=== PATIENT | female | born 1995 | race Caucasian/White ===

== ENCOUNTER 2019-01-19 17:18 | Emergency (ER) | payer OTHER ==
[~2019-01-19] VITALS: Ht 154.9 cm; Wt 63.5 kg
[2019-01-19 17:27] VITALS: BP_SYST 112
--- NOTE | 2019-01-19 17:35 | NUR ---
Patient triaged and placed in waiting room. VSS and patient appears in no acute distress at this time. Accompanied by mother, awaiting available bed, and MD notified of need for MSE.
--- NOTE | 2019-01-19 17:44 | NUR ---
Patient to ER bed 03 to gown for evaluation. Side rails up. Report given to Regulo RAINEY.
[2019-01-19] MEDS ORDERED: KETOROLAC TROMETHAMINE 60 MG/2 ML VIAL IM ONE (17:45)
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
[2019-01-19 18:49] VITALS: BP_SYST 112
--- NOTE | 2019-01-19 18:49 | NUR ---
Patient given written and verbal discharge instructions and verbalizes understanding. ER MD discussed with patient the results and treatment provided. Patient in stable condition. ID arm band removed. Rx of flexeril and motrin given. Patient educated on pain management and to follow up with PMD. Pain Scale 7/10. Opportunity for questions provided and answered. Medication side effect fact sheet provided.
== END 2019-01-19 18:49 | disposition home or self-care (01) ==
LOC: SED 17:18
DX: M79.10 Myalgia, unspecified site (principal); V43.92XA Unspecified car occupant injured in collision with other type car in traffic accident, initial encounter; Y93.89 Activity, other specified; Y92.410 Unspecified street and highway as the place of occurrence of the external cause; Y99.8 Other external cause status
CPT/HCPCS: 81025; 96372; 99283; J1885

== ENCOUNTER 2020-07-27 08:06 | Outpatient (CLI) | payer OTHER ==
[2020-07-27 08:51] LABS: BASOPHILS % (AUTO) 0.3 % (0.0-2.0); EOSINOPHILS # (AUTO) 0.2 K/uL (0.0-0.4); EOSINOPHILS % (AUTO) 2.6 % (0.0-4.0); HEMATOCRIT 38.2 % (36-48); LYMPHOCYTES # (AUTO) 2.5 K/uL (1.0-5.5); LYMPHOCYTES % (AUTO) 38.1 % (20.5-51.5); MEAN CORPUSCULAR HEMOGLOBIN 29 pg (27-31); MEAN CORPUSCULAR HGB CONC 34 % (32-36); MEAN CORPUSCULAR VOLUME 84 fL (79.0-98.0); MONOCYTES # (AUTO) 0.5 K/uL (0.0-1.0); MONOCYTES % (AUTO) 7.1 % (1.7-9.3); NEUTROPHILS # (AUTO) 3.4 K/uL (1.8-7.7); NEUTROPHILS % (AUTO) 51.9 % (40.0-70.0); PLATELET COUNT (AUTO) 229 K/uL (130-430); RED BLOOD CELL COUNT(AUTO) 4.56 MIL/uL (4.2-6.2); RED CELL DISTRIBUTION WIDTH 12.6 % (9.0-15.0); WHITE BLOOD COUNT (AUTO) 6.5 K/uL (4.8-10.8)
[2020-07-27 09:28] LABS: ERYTHROCYTE SEDIMENTATION RATE 16 MM/HR (0-20)
[2020-07-27 09:47] LABS: ALBUMIN 3.9 g/dL (3.4-4.8); CALCIUM 8.1 mg/dL (8.4-11.0); CREATININE 0.61 mg/dL (0.55-1.30); POTASSIUM 3.6 mmol/L (3.5-5.1); THYROID STIMULATING HORMONE 3.17 uIu/mL (0.36-3.74); TOTAL BILIRUBIN 0.3 mg/dL (0.0-1.0)
[2020-07-27 10:20] LABS: C-REACTIVE PROTEIN QUANT 0.4 mg/dL (0-0.5)
[2020-07-28 05:09] LABS: HEMOGLOBIN A1C 5.4 % (4.8-5.6)
== END 2020-07-27 20:59 | disposition home or self-care (01) ==
LOC: SUS 08:06
PROVIDERS: ATTEND Internal Medicine
DX: R10.9 Unspecified abdominal pain (principal)
CPT/HCPCS: 36415; 76700-TC; 80053; 80061; 82306; 82607; 83036; 84443-TC; 85025; 85651-TC; 86140; 87086

== ENCOUNTER 2021-03-08 10:06 | Outpatient (CLI) | payer OTHER ==
[2021-03-08 10:50] LABS: BASOPHILS % (AUTO) 0.3 % (0.0-2.0); EOSINOPHILS # (AUTO) 0.1 K/uL (0.0-0.4); HEMATOCRIT 37.4 % (36-48); HEMOGLOBIN 12.8 g/dL (12.0-16.0); LYMPHOCYTES # (AUTO) 2.4 K/uL (1.0-5.5); LYMPHOCYTES % (AUTO) 36.7 % (20.5-51.5); MEAN CORPUSCULAR HEMOGLOBIN 28 pg (27-31); MEAN CORPUSCULAR HGB CONC 34 % (32-36); MEAN CORPUSCULAR VOLUME 83 fL (79.0-98.0); MONOCYTES # (AUTO) 0.4 K/uL (0.0-1.0); MONOCYTES % (AUTO) 6.2 % (1.7-9.3); NEUTROPHILS # (AUTO) 3.6 K/uL (1.8-7.7); NEUTROPHILS % (AUTO) 54.8 % (40.0-70.0); PLATELET COUNT (AUTO) 254 K/uL (130-430); RED BLOOD CELL COUNT(AUTO) 4.53 MIL/uL (4.2-6.2); RED CELL DISTRIBUTION WIDTH 12.8 % (9.0-15.0); WHITE BLOOD COUNT (AUTO) 6.6 K/uL (4.8-10.8)
[2021-03-08 11:20] LABS: ALBUMIN 3.9 g/dL (3.4-4.8); CALCIUM 8.8 mg/dL (8.4-11.0); CREATININE 0.66 mg/dL (0.55-1.30); POTASSIUM 3.9 mmol/L (3.5-5.1); THYROID STIMULATING HORMONE 2.15 uIu/mL (0.36-3.74); TOTAL BILIRUBIN 0.3 mg/dL (0.0-1.0)
[2021-03-09 04:07] LABS: HEMOGLOBIN A1C 5.4 % (4.8-5.6)
== END 2021-03-08 20:19 | disposition home or self-care (01) ==
LOC: SLB 10:06
PROVIDERS: ATTEND Internal Medicine
DX: J45.20 Mild intermittent asthma, uncomplicated (principal); E66.09 Other obesity due to excess calories; E78.5 Hyperlipidemia, unspecified; E55.9 Vitamin D deficiency, unspecified; E56.9 Vitamin deficiency, unspecified
CPT/HCPCS: 36415; 80053; 80061; 82306; 82607; 83036; 84443; 85025

== ENCOUNTER 2022-02-20 09:55 | Outpatient (CLI) | payer OTHER ==
[2022-02-20 12:06] LABS: BASOPHILS % (AUTO) 0.4 % (0.0-2.0); EOSINOPHILS # (AUTO) 0.1 K/uL (0.0-0.4); EOSINOPHILS % (AUTO) 2.3 % (0.0-4.0); HEMATOCRIT 37.9 % (36-48); HEMOGLOBIN 13.3 g/dL (12.0-16.0); LYMPHOCYTES # (AUTO) 2.1 K/uL (1.0-5.5); LYMPHOCYTES % (AUTO) 33.5 % (20.5-51.5); MEAN CORPUSCULAR HEMOGLOBIN 29 pg (27-31); MEAN CORPUSCULAR HGB CONC 35 % (32-36); MEAN CORPUSCULAR VOLUME 82 fL (79.0-98.0); MONOCYTES # (AUTO) 0.4 K/uL (0.0-1.0); MONOCYTES % (AUTO) 6.4 % (1.7-9.3); NEUTROPHILS # (AUTO) 3.6 K/uL (1.8-7.7); NEUTROPHILS % (AUTO) 57.4 % (40.0-70.0); PLATELET COUNT (AUTO) 240 K/uL (130-430); RED BLOOD CELL COUNT(AUTO) 4.64 MIL/uL (4.2-6.2); RED CELL DISTRIBUTION WIDTH 13.1 % (9.0-15.0); WHITE BLOOD COUNT (AUTO) 6.3 K/uL (4.8-10.8)
[2022-02-20 12:34] LABS: ALBUMIN 3.8 g/dL (3.4-4.8); CALCIUM 7.9 mg/dL (8.4-11.0); CREATININE 0.7 mg/dL (0.55-1.30); FREE T4 (FREE THYROXINE) 0.9 ng/dl (0.8-1.5); POTASSIUM 3.6 mmol/L (3.5-5.1); THYROID STIMULATING HORMONE 2.83 uIu/mL (0.36-3.74); TOTAL BILIRUBIN 0.4 mg/dL (0.0-1.0)
[2022-02-21 07:06] LABS: ESTRADIOL 29.7 pg/mL (.); FOLLICLE STIMULATION HORMONE 5.6 mIU/mL (.); PROLACTIN 8.4 ng/mL (4.8-23.3)
== END 2022-02-20 20:40 | disposition home or self-care (01) ==
LOC: SLB 09:55
PROVIDERS: ATTEND Nurse Practitioner Family
DX: N92.6 Irregular menstruation, unspecified (principal)
CPT/HCPCS: 36415; 76830-TC; 76857; 80053; 82306; 82607; 82670; 83001; 84146; 84403; 84439; 84443; 84480; 85025

== ENCOUNTER 2022-04-16 07:54 | Outpatient (CLI) | payer OTHER | END 2022-04-16 20:17 | disposition home or self-care (01) | LOC: SUS 07:54 | PROVIDERS: ATTEND Internal Medicine | DX: R79.89 Other specified abnormal findings of blood chemistry (principal) | CPT/HCPCS: 76700-TC ==

== ENCOUNTER 2022-05-01 13:46 | Outpatient (CLI) | payer OTHER ==
[2022-05-02 08:06] LABS: HEMOGLOBIN A1C 5.3 % (4.8-5.6)
[2022-05-02 10:06] LABS: HEPATITIS A AB, IgM Negative (Negative); HEPATITIS B CORE AB, IgM Negative (Negative); HEPATITIS B SURFACE AG Negative (Negative)
== END 2022-05-01 18:12 | disposition home or self-care (01) ==
LOC: SLB 13:46
PROVIDERS: ATTEND Internal Medicine
DX: R94.5 Abnormal results of liver function studies (principal); R73.9 Hyperglycemia, unspecified
CPT/HCPCS: 36415; 80074; 83036

== ENCOUNTER 2022-09-04 11:19 | Outpatient (CLI) | payer OTHER ==
[2022-09-04 12:38] LABS: BASOPHILS % (AUTO) 0.3 % (0.0-2.0); EOSINOPHILS # (AUTO) 0.1 K/uL (0.0-0.4); EOSINOPHILS % (AUTO) 1.9 % (0.0-4.0); HEMATOCRIT 37.2 % (36-48); HEMOGLOBIN 12.7 g/dL (12.0-16.0); LYMPHOCYTES % (AUTO) 33.7 % (20.5-51.5); MEAN CORPUSCULAR HEMOGLOBIN 28 pg (27-31); MEAN CORPUSCULAR HGB CONC 34 % (32-36); MEAN CORPUSCULAR VOLUME 82 fL (79.0-98.0); MONOCYTES # (AUTO) 0.4 K/uL (0.0-1.0); NEUTROPHILS # (AUTO) 3.4 K/uL (1.8-7.7); NEUTROPHILS % (AUTO) 57.1 % (40.0-70.0); PLATELET COUNT (AUTO) 273 K/uL (130-430); RED BLOOD CELL COUNT(AUTO) 4.56 MIL/uL (4.2-6.2); RED CELL DISTRIBUTION WIDTH 13.5 % (9.0-15.0); WHITE BLOOD COUNT (AUTO) 5.9 K/uL (4.8-10.8)
[2022-09-04 13:09] LABS: ALBUMIN 3.9 g/dL (3.4-4.8); CALCIUM 8.6 mg/dL (8.4-11.0); CREATININE 0.56 mg/dL (0.55-1.30); THYROID STIMULATING HORMONE 1.59 uIu/mL (0.36-3.74); TOTAL BILIRUBIN 0.4 mg/dL (0.0-1.0)
[2022-09-05 05:07] LABS: HEMOGLOBIN A1C 5.4 % (4.8-5.6)
[2022-09-05 08:06] LABS: HEPATITIS A AB, IgM Negative (Negative); HEPATITIS B CORE AB, IgM Negative (Negative); HEPATITIS B SURFACE AG Negative (Negative)
== END 2022-09-04 19:03 | disposition home or self-care (01) ==
LOC: SLB 11:19
PROVIDERS: ATTEND Internal Medicine
DX: E78.5 Hyperlipidemia, unspecified (principal); R94.5 Abnormal results of liver function studies; R73.9 Hyperglycemia, unspecified; E55.9 Vitamin D deficiency, unspecified
CPT/HCPCS: 36415; 80053; 80061; 80074; 82306; 83036; 84439; 84443; 85025

== ENCOUNTER 2023-07-16 15:26 | Emergency (ER) | payer OTHER ==
[~2023-07-16] VITALS: Ht 152.4 cm; Wt 68.9 kg
[2023-07-16 15:38] VITALS: BP_SYST 127; PULSE 99; RESP 22; TEMP 98.3; O2SAT 100
[2023-07-16] MEDS ORDERED: NABU-140 PO (16:41)
[2023-07-16] MEDS ORDERED: IBUPROFEN 600 MG TABLET PO ONE (16:45)
== END 2023-07-16 17:06 | disposition home or self-care (01) ==
LOC: SED 15:26
DX: M23.91 Unspecified internal derangement of right knee (principal); M25.561 Pain in right knee; Z79.899 Other long term (current) drug therapy
CPT/HCPCS: 73564; 99283